=== PATIENT | male | born 1955 | race Caucasian/White ===

== ENCOUNTER → 2017-05-25 | Outpatient (CLI) | payer BC ==
[~2017-05-25] MED LIST: ALBUTEROL SULFATE 0.083% NEB 2.5 MG/3 ML AMPUL NEB ONE
--- NOTE | 2017-05-30 08:28 | PULMONARY FUNCTION TEST ---
DATE OF SERVICE: 05/25/2017 THE VITAL CAPACITY IS NORMAL. THE EXPIRATORY FLOW RATES ARE SEVERELY DECREASED. THE FEV1/VC IS 35%, PREDICTED: 80% LUNG VOLUMES BY NITROGEN WASH OUT METHOD SHOW: TLC IS 86% OF PREDICTED FRC IS 94% OF PREDICTED RV IS 57% OF PREDICTED THE DLCO IS 18.3, 69% OF PREDICTED. THE RV/TLC RATIO IS 24% PREDICTED 38% AFTER BRONCHODILATOR, EXPIRATORY FLOW RATES SHOW NO SIGNIFICANT CHANGE. IMPRESSION: GOOD PATIENT EFFORT. SEVERE OBSTRUCTIVE DEFECT; LUNG VOLUMES ARE NORMAL; DIFFUSING CAPACITY IS MODERATELY DECREASED. CC: BARBI JO MD > ANTOINED
== END ==
LOC: RT 09:50
PROVIDERS: ATTEND Internal Medicine Pulmonary Disease
DX: J44.9 Chronic obstructive pulmonary disease, unspecified (principal)
CPT/HCPCS: 94060; 94727; 94729

== ENCOUNTER → 2020-01-02 | Outpatient (CLI) | payer BC ==
--- NOTE | 2020-01-02 10:51 | RADIOLOGY REPORT (SQ) ---
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 TECHNIQUE: Dynamic and static grayscale images acquired of the abdomen and recorded on PACS. Additio nal selected color Doppler and spectral images recorded. Note: Study does not meet criteria for complete doppler/duplex scan LIMITATIONS: None. FINDINGS: PANCREAS: Limited visualization due to overlying bowel gas. No focal masses. LIVER: There is fatty infiltration of the liver. The liver measures 18.6 cm in cranial caudal dimens ions. No masses. LIVER VASCULATURE: Normal directional flow of the main portal vein and hepatic veins. GALLBLADDER: Small stones. No wall thickening or pericholecystic fluid. ULTRASOUND-DETECTED DIAZ'S SIGN: Negative. INTRAHEPATIC DUCTS AND COMMON DUCT: CBD and intrahepatic ducts normal caliber. No filling defects. INFERIOR VENA CAVA: Not well visualized. AORTA: No aneurysm. RIGHT KIDNEY: Normal size. Normal echogenicity. No solid or suspicious masses. No hydronephros is. No calcifications. LEFT KIDNEY: Normal size. Normal echogenicity. No solid or suspicious masses. No hydronephrosi s. No calcifications. Possible mild cortical thinning involving the upper pole. SPLEEN: Normal size. No solid masses. PERITONEAL AND PLEURAL SPACES: No ascites or effusions. OTHER: No other significant finding. IMPRESSION: 1. Gallstones but no sonographic evidence of acute cholecystitis. 2. Fatty infiltrated liver. TECHNICAL DOCUMENTATION: JOB ID: [id number] 2010 [employer]- All Rights Reserved Reading location - IP/workstation name: [email or web address]
== END ==
LOC: RAD 07:23
PROVIDERS: ATTEND Internal Medicine
DX: E83.19 Other disorders of iron metabolism (principal); K80.80 Other cholelithiasis without obstruction; K76.0 Fatty (change of) liver, not elsewhere classified
CPT/HCPCS: 76700; 93976

== ENCOUNTER → 2020-01-08 | Outpatient (CLI) | payer BC ==
--- NOTE | 2020-01-08 17:13 | XCELERA REPORT ---
[address] [address] Transthoracic Echocardiogram Report Name: LILLIAN MARTINEZ Age: 64 yrs Gender: Male : 1955 Patient Status: Outpatient Patient Location: Study Date: 01/08/2020 08:07 AM Height: 69 in Weight: 230 lb BSA: 2.2 m2 Reason For Study: SOB Ordering Physician: FELICITY SANDOVAL Performed By: Arpit Mortensen Interpretation Summary Suboptimal images , incomplete segmental analysis. See pictorals. min. post. pericardial effusion.mild aortic root calcium. Nonstenotic calcific aortic vavular disease, 3 cusps, No AR. Mild mitral annular calcification. No MS, no MVP. Mild MR with no LA enlargement. LIEN was 15.5cc/m2. Moderate concentric LVH with IVS 16 mm/ LVPW 14 mm, no LV enlargement. LVESD 32 mm. RWMA, see pictorals. LVEF visual biplane is 55-60% normal. and LV diastolic function is stage I. RH is normal, RVSP is 24mmHg, RAP is 3 mm Hg, TR is mild. No CA. IVC not well seen. MMode/2D Measurements & Calculations RVDd: 3.6 cm LVIDd: 5.0 cm FS: 30.6 % Ao root diam: IVSd: 1.2 cm LVIDs: 3.5 cm EDV(Teich): 3.4 cm LVPWd: 1.1 cm 120.5 ml Ao root area: ESV(Teich): 50.9 ml 9.1 cm2 LA dimension: EF(Teich): 57.8 % 3.3 cm LVLd ap4: 8.9 cm SV(MOD-sp4): EDV(MOD-sp4): 74.0 ml 119.0 ml LVLs ap4: 7.9 cm ESV(MOD-sp4): 45.0 ml EF(MOD-sp4): 62.2 % Doppler Measurements & Calculations MV E max jerry: MV P1/2t max jerry: Ao V2 max: LV V1 max P.6 cm/sec 49.5 cm/sec 116.2 cm/sec 3.1 mmHg MV A max jerry: MV P1/2t: 84.1 msec Ao max P.4 mmHg LV V1 max: 63.9 cm/sec MVA(P1/2t): 2.6 cm2 88.5 cm/sec MV E/A: 0.75 MV dec slope: 172.5 cm/sec2 MV dec time: 0.39 sec PA V2 max: TR max jerry: MV P1/2t-pr_phl: 87.4 cm/sec 229.4 cm/sec 84.1 msec PA max PG: TR max P.0 mmHg 3.1 mmHg I WMSI = 1.46 % Normal = 54 Segments Size X - Cannot 2 - 4 - 1-2 small Interpret 1 - Normal Hypokinetic 3 - AkineticDyskinetic 3-5 moderate 5 - 6-14 large Aneurysmal 15-16 diffuse : FELICITY SANDOVAL Andre
== END ==
LOC: SP 07:44
PROVIDERS: ATTEND Internal Medicine
DX: R06.02 Shortness of breath (principal)
CPT/HCPCS: 93306

== ENCOUNTER → 2020-02-14 | Outpatient (CLI) | payer BC ==
--- NOTE | 2020-02-14 13:43 | RADIOLOGY REPORT (SQ) ---
EXAM DESCRIPTION: VENOUS UNILATERAL UPPER IMAGES COMPLETED DATE/TIME: 02/14/2020 1:36 pm REASON FOR STUDY: RUE SWELLING/PAIN M79.621 PAIN IN RIGHT UPPER ARM COMPARISON: None. TECHNIQUE: Dynamic and static malhotra scale and color images acquired of the right arm venous system. S elected spectral images acquired with additional compression and augmentation maneuvers. The contrala teral subclavian vein and internal jugular vein were also imaged. Images stored on PACS. LIMITATIONS: None. FINDINGS: INTERNAL JUGULAR VEIN: Normal phasicity, compression, augmentation. No visualized echogeni c material on malhotra scale. No defects on color images. Comparison opposite side normal. SUBCLAVIAN VEIN: Normal compression, augmentation. No visualized echogenic material on malhotra scale. No defects on color images. AXILLARY VEIN: Normal compression, augmentation. No visualized echogenic material on malhotra scale. No d efects on color images. BRACHIAL VEIN: Normal compression, augmentation. No visualized echogenic material on malhotra scale. No d efects on color images. BASILIC VEIN: Normal compression, augmentation. No visualized echogenic material on malhotra scale. No de fects on color images. CEPHALIC VEIN: Normal compression, augmentation. No visualized echogenic material on malhotra scale. No d efects on color images. OTHER: No other significant finding. CONTRALATERAL SUBCLAVIAN VEIN AND INTERNAL JUGULAR VEIN: Normal phasicity, compression and augmentation. No visualized echogenic material on malhotra scale. No de fects on color images. IMPRESSION: NO EVIDENCE DVT OR SVT IN THE RIGHT ARM. TECHNICAL DOCUMENTATION: JOB ID: [id number] 2010 [facility]- All Rights Reserved Reading location - IP/workstation name: [email or web address]
== END ==
LOC: SP 09:19
PROVIDERS: ATTEND Internal Medicine
DX: M79.621 Pain in right upper arm (principal); R22.31 Localized swelling, mass and lump, right upper limb
CPT/HCPCS: 93971

== ENCOUNTER 2020-09-02 10:21 | Day surgery (SDC) | payer BC ==
[~2020-09-02 10:21] MED LIST changes: +ACETAMINOPHEN 1,000 MG/100 ML RTUPB IV ONE; +ACETAMINOPHEN 1,000 MG/100 ML RTUPB IV PRN; -ALBUTEROL SULFATE 0.083% NEB 2.5 MG/3 ML AMPUL NEB ONE; +CEFAZOLIN 2 GM/D5W RTU 2 GM/50 ML RTUPB IV ONE; +CEFAZOLIN 2 GM/D5W RTU 2 GM/50 ML RTUPB IV PRN; +IBUPROFEN 800 MG in NORMAL SALINE 250 ML IV PRN; +LACTATED RINGERS 1000 ML IV PRN
[2020-09-02 12:05] LABS: HEMATOCRIT 45.2 % (37.9-51.0); HEMOGLOBIN 15.6 g/dL (13.5-17.0); MEAN CORPUSCULAR HEMOGLOBIN 29.2 pg (27.0-33.4); MEAN CORPUSCULAR HGB CONC 34.5 g/dL (32.0-36.0); MEAN CORPUSCULAR VOLUME 85 fl (80-97); PLATELET COUNT 232 10^3/uL (150-450); RED BLOOD COUNT 5.34 10^6/uL (4.35-5.55); RED CELL DISTRIBUTION WIDTH 13.8 % (11.5-14.0)
[2020-09-02 12:12] LABS: ANION GAP 15 (5-19); BLOOD UREA NITROGEN 11 mg/dL (7-20); CALCIUM 9.6 mg/dL (8.4-10.2); CARBON DIOXIDE 18 mmol/L (22-30); CHLORIDE 108 mmol/L (98-107); GLUCOSE 119 mg/dL (75-110); POTASSIUM 4.4 mmol/L (3.6-5.0)
[2020-09-02] MEDS ORDERED: SUGAMMADEX SODIUM 200 MG/2 ML SDV IV ONE (13:57)
[2020-09-02] MEDS ORDERED: DEXAMETHASONE SOD PHOSPHATE INJ 4 MG/1 ML VIAL ONE (13:57)
[2020-09-02] MEDS ORDERED: ONDANSETRON HCL INJ/PF 4 MG/2 ML SDV ONE ×2 (13:57→19:34)
[2020-09-02] MEDS ORDERED: FENTANYL CITRATE INJ/PF 100 MCG/2 ML AMPUL ONE ×2 (13:57→14:05)
[2020-09-02] MEDS ORDERED: MIDAZOLAM 2 MG/2 ML INJ ONE (13:57)
[2020-09-02] MEDS ORDERED: MORPHINE SULFATE 10 MG/ML INJ ONE (13:57)
[2020-09-02] MEDS ORDERED: PROPOFOL INJ 200 MG/20 ML VIAL IV ONE (13:59)
[2020-09-02] MEDS ORDERED: BUPIVACAINE HCL 0.25 % INJ/PF (2.5 MG/1 ML) 30 ML VIAL ONE (14:03)
[2020-09-02] MEDS ORDERED: MORPHINE SULFATE 10 MG/ML INJ IV PRN (15:34)
[2020-09-02] MEDS ORDERED: OXYCODONE-ACETAMINOPHEN 5-325 MG TABLET PO PRN ×2 (15:34)
[2020-09-02] MEDS ORDERED: DIPHENHYDRAMINE HCL 50 MG/ML VIAL IV PRN (15:34)
[2020-09-02] MEDS ORDERED: PROMETHAZINE HCL INJ 25 MG/1 ML VIAL IV PRN ×2 (15:34)
[2020-09-02] MEDS ORDERED: MEPERIDINE HCL/PF INJ 25 MG/1 ML DISP.SYRIN IV PRN (15:34)
[2020-09-02] MEDS ORDERED: FENTANYL CITRATE INJ/PF 100 MCG/2 ML AMPUL IV PRN ×3 (15:34)
--- NOTE | 2020-09-02 16:41 | Discharge Summary ---
Discharge Summary (SDC) - Discharge Final Diagnosis: umbilical hernia, diastasis recti Date of Surgery: 09/02/20 Discharge Date: 09/02/20 Condition: Stable Forms: ASU Anesthesia D/C Instruction, Discharge POC-Surgical Service Treatment or Instructions: norco 10/325mg PO q6 hrs PRN pain. No tub baths or swimming x2 weeks. OK to shower on . Prescriptions: Hydrocodone/Acetaminophen [[place] 10-325 mg Tablet] 1 tab PO Q6HP PRN #28 tablet PRN Reason: For Pain Referrals: YORDAN JOHNSON MD [ACTIVE STAFF] - 09/15/20 10:45 am Discharge Diet: As Tolerated Respiratory Treatments at Home: Deep Breathing/Coughing, Incentive Spirometer Discharge Activity: No Lifting Over 10 Pounds, No Lifting/Push/Pulling Home Care Assistance: None Needed Report the Following to Your Physician Immediately: Shortness of Breath, Nausea, Vomiting, Increase in Pain, Fever over 101 Degrees, Unusual Bleeding, Redness
[2020-09-02] MEDS ORDERED: HYDROCODONE/ACETAMINOPHEN 10-325 MG TABLET ONE (18:05)
[2020-09-02] MEDS ORDERED: HYDROCODONE/ACETAMINOPHEN 10-325 MG TABLET PO ONE (18:15)
[2020-09-02] MEDS ORDERED: ALBUTEROL SULFATE 0.083% NEB 2.5 MG/3 ML AMPUL NEB ONE (18:18)
[2020-09-02] MEDS ORDERED: ONDANSETRON 4 MG TAB.RAPDIS ONE (19:15)
[2020-09-02] MEDS ORDERED: ONDANSETRON 4 MG TAB.RAPDIS PO ONE (20:00)
[2020-09-02] MEDS ORDERED: ONDANSETRON HCL INJ/PF 4 MG/2 ML SDV IV ONE (20:00)
[2020-09-02 21:18] VITALS: BP 141/83
--- NOTE | 2020-09-11 13:14 | Operative Report ---
Nonrecallable Operative Report DATE OF SURGERY: 09/02/20 PREOPERATIVE DIAGNOSIS: Symptomatic ventral hernia POSTOPERATIVE DIAGNOSIS: Same as above OPERATION: Robot-assisted laparoscopic ventral hernia repair with mesh (15 x [address]) SURGEON: YORDAN JOHNSON 1ST HEATING ELEMENT REPAIRER: RADHA ARTHUR ANESTHESIA: GA TISSUE REMOVED OR ALTERED: None COMPLICATIONS: None apparent ESTIMATED BLOOD LOSS: Minimal PROCEDURE: Drains/implants: 15 x [address] hernia mesh. Procedure in detail: After informed consent was obtained, the patient was brought into the operating room and laid in the supine position. The area of the abdomen was prepped and draped in a normal sterile fashion. A left upper quadrant incision was created with a 15 blade scalpel. The 5 mm trocar and 5 mm camera were inserted into the abdomen using the Optiview technique. Once the abdominal cavity was accessed, gas insufflation was attached, and pneumoperitoneum was achieved. A 12 mm trocar was then placed in the left lateral abdomen under direct laparoscopic visualization. An 8 mm robotic trocar was placed in the left lower quadrant in similar fashion. The 5 mm left upper quadrant trocar was removed and replaced with an 8 mm robotic trocar. The robot was then brought over the patient and docked appropriately. I then assumed my position at the surgeon's console. Attention was turned to the ventral hernia defect, which was relatively small. The patient had a large amount of diastases recti present. The diastases was plicated internally using #1 V-Loc suture. This was done in simple running fashion. The ventral hernia defect was closed along with the diastasis. Once this was completed, a 15 x [address] hernia mesh was chosen to adequately cover the defect and the diastasis. The mesh was apposed to the anterior abdominal wall using the EPS. The mesh was then sutured to the abdominal wall using 2-0 VLock suture in simple running fashion. Once this was completed, the mesh repair appeared to be in good place. The robot was undocked, and I scrubbed back into the patient's bedside. The 8 mm trocar sites were closed using the Vance-Ellen device and 0 Vicryl suture in simple interrupted fashion. The left lateral 12 mm trocar site was closed using 0 Vi cryl suture in ozchtl-kz-cunva fashion with the aid of the Vance-Ellen device. The overlying skin was closed using 4-0 Vicryl Rapide suture in running subcuticular fashion. Dressings were then placed, and the procedure was concluded. All sponge, instrument, and needle counts were correct x2. Condition: Stable. Radha Arthur PA-C was scrubbed and present the entirety the procedure. She assisted with all portions of the procedure including opening of the abdomen, insertion of the trochars, docking of the robot, exchanging of the robotic instruments, closure of the fascia, and closure of the skin.
== END 2020-09-02 20:00 | disposition home or self-care (01) ==
LOC: OROUT 10:21
PROVIDERS: ATTEND Surgery
DX: K42.9 Umbilical hernia without obstruction or gangrene (principal); M62.08 Separation of muscle (nontraumatic), other site; E83.119 Hemochromatosis, unspecified; Z03.818 Encounter for observation for suspected exposure to other biological agents ruled out; Z87.891 Personal history of nicotine dependence; Z86.010 Personal history of colon polyps; J44.9 Chronic obstructive pulmonary disease, unspecified; Z79.51 Long term (current) use of inhaled steroids
CPT/HCPCS: 86900; 86901; 36415; 86850; 85027; 80048; 49652; C1781; U0003; J2250; J1100; S0119; J3010; J2270; J2405; J7050; J2704; J7613; J0690; J0131; J1741; J3490; C9803; 87635